=== PATIENT | male | born 1985 | race Caucasian/White ===

== ENCOUNTER 2022-08-11 12:18 | Observation (INO) ==
[2022-08-11 12:50] LABS: Bacteria,Urine Few per hpf (None-Few); Bilirubin,Urine Negative (Negative); Blood,Urine Negative (Negative); Clarity,Urine Clear (Clear); Color,Urine Light-Yellow (Yellow); Glucose,Urine (UA) 30 mg/dL (Normal); Ketones,Urine Negative (Negative); Leukocyte Esterase,Urine Negative (Negative); Mucus,Urine Few per lpf (None-Few); Nitrite,Urine Negative (Negative); Protein,Urine Negative (Neg-Trace); RBC,Urine 0-3 per hpf (0-3); Specific Gravity,Urine 1.018 (1.010-1.025); Urobilinogen,Urine Normal (Normal)
[2022-08-11 12:59] LABS: Amphetamine Screen,Urine Negative ng/mL (Cutoff=1000); Barbiturate Screen,Urine Negative ng/mL (Cutoff=200); Benzodiazepines Screen,Urine Negative ng/mL (Cutoff=200); Cannabinoid Screen,Urine Positive ng/mL (Cutoff = 50); Cocaine Screen,Urine Negative ng/mL (Cutoff= 300); Opiate Screen,Urine Negative ng/mL (Cutoff=300); Phencyclidine Screen,Urine Negative ng/mL (Cutoff=25)
[2022-08-11] MEDS ORDERED: Haloperidol Lactate 5 MG/ML VIAL IM ONE (14:14)
[2022-08-11] MEDS ORDERED: *HR* LORazepam 2 MG/ML VIAL IM ONE (14:15)
[2022-08-11 15:50] LABS: Influenza A PCR Negative (Negative); Influenza B PCR Negative (Negative); Resp. Syncytial Virus PCR Negative (Negative)
[2022-08-11 15:52] LABS: SARS-CoV-2 by PCR (In House) Positive (Negative)
[2022-08-11] MEDS ORDERED: Naloxone 0.4 MG/ML INJ IVP PRN (16:28)
[2022-08-11] MEDS ORDERED: Acetaminophen 325 MG TABLET PO ONE (20:48)
[2022-08-12] MEDS: Nicotine 21 MG PATCH.TD24 TD SCH (20:10)
[2022-08-12] MEDS ORDERED: Divalproex (24 HR) 500 MG TABLET PO SCH (21:00)
[2022-08-12 23:53] VITALS: TEMP 98.2
[2022-08-13] MEDS ORDERED: Acetaminophen 325 MG TABLET PO PRN (06:11)
[2022-08-13] MEDS: Nicotine 21 MG PATCH.TD24 TD SCH (09:03)
[2022-08-13 09:12] VITALS: BP 146/90; PULSE 74; O2SAT 96
== END 2022-08-13 13:25 | disposition home or self-care (01) ==
LOC: 3NENU 12:18 → EMEROOARM 12:18 → 3NENU 19:03
PROVIDERS: ADMIT Internal Medicine; ATTEND Internal Medicine